=== PATIENT | female | born 1995 | race Caucasian/White ===

== ENCOUNTER 2023-05-22 05:50 | Observation (INO) ==
--- NOTE | 2023-05-17 13:43 | Anesthesiology Consultation ---
Date of Service May 17, 2023 Assessment & Plan (1) Encounter for pre-operative examination: - Check test AM DOS - Infectious disease screening: Per assessment on 05/17/23: No known infectious disease contacts or current infectious disease symptoms. No noted recent Covid positive test result. - Wegovy instructions: Patient states that she was advised by surgeon to stop Wegovy until after surgery. Last dose was 05/01/23. Patient informed by PAT RN that if restarting prior to surgery, to make sure not to take 7 days prior to surgery- voiced understanding. Chart Review Chart Review: Acceptable Risk for Surgery and Patient NOT seen in Pre Admission Testing History Surgery Operation Date: 05/22/23 07:30 Proposed Procedures p Bilateral Breast Reduction - Elif Candelario MD s Panniculectomy, Suction Assisted Lipectomy of the Abdomen - Elif Candelario MD Height/Weight Height: 5 ft 9.5 in Weight: 86.183 kg Allergies Allergy/AdvReac Type Severity Reaction Status Date / Time amoxicillin [From Augmentin] AdvReac Unknown Nausea Verified 05/17/23 13:14 clavulanic acid AdvReac Unknown Nausea Verified 05/17/23 13:14 [From Augmentin] Medications Home Medications Medication Instructions Recorded Confirmed Last Taken ascorbic acid (vitamin C) 500 mg 1,000 mg PO QAM 07/23/22 05/17/23 2 Weeks Ago capsule ~11/05/22 ferrous sulfate 325 mg (65 mg 325 mg PO QAM 07/23/22 05/17/23 2 Weeks Ago iron) tablet (Feosol) ~11/05/22 magnesium chloride 64 mg 64 mg PO QAM 07/23/22 05/17/23 2 Weeks Ago (magnesium chloride) tablet ~11/05/22 multivitamin 1 tab PO QAM 07/23/22 05/17/23 2 Weeks Ago ~11/05/22 semaglutide (weight loss) 2.4 2.4 mg (0.75 mL) subcut Q7D #3 mL 04/12/23 05/17/23 Unknown mg/0.75 mL subcutaneous pen injector (Wegovy) ondansetron 4 mg disintegrating 4 mg PO Q6H PRN nausea and 04/29/23 05/17/23 Unknown tablet vomiting #15 tabs cholecalciferol (vitamin D3) 25 25 mcg PO QAM 05/17/23 05/17/23 Unknown mcg (1,000 unit) capsule clindamycin phosphate 1 % lotion 1 applic topical QPM 05/17/23 05/17/23 Unknown medical marijuana 1 cap PO HS PRN prn 05/17/23 05/17/23 Unknown Past Medical History Medical History Anemia Anxiety History of COVID-19 10/2022, mild symptoms Ovarian cyst nl us 08/26 Past Family History Family History Mother Skin cancer Father Diabetes Family/Other Myocardial infarction Other Hypercholesteremia Hypertension Denies family history of Ovarian cancer Prostate cancer Breast cancer Lung cancer Colorectal cancer Uterine cancer Stroke Past Surgical History Surgical History History of anesthesia reaction emotional, angry and crying Hx laparoscopic cholecystectomy S/P knee surgery 10+ years ago Status post wisdom tooth extraction Social History Smoking Status: Never smoker Do You Dip or Chew Tobacco: No Hx Alcohol Use: Yes Alcohol type: wine and hard liquor alcohol intake frequency: a few times a month Hx Substance Use: No substance use type: does not use Lab Results Anesthesia Preop Results Results Anesthesia Widget: WBC 7.56 K/ul (4.8-10.8) 05/07/23 Hgb 13.6 g/dl (12.0-16.0) 05/07/23 Hct 40.7 % (37.0-47.0) 05/07/23 Plt 418 K/uL (130-400) H 05/07/23 Na 136 mmol/L (136-145) 05/07/23 K 3.9 mmol/L (3.5-5.1) 05/07/23 Cl 104 mmol/L (98-107) 05/07/23 CO2 24 mmol/L (21-32) 05/07/23 BUN 12 mg/dl (6-23) 05/07/23 Creat 0.77 mg/dl (0.6-1.2) 05/07/23 Glucose Level 86 mg/dl (70-99(Fasting)) 05/07/23 PT 10.5 Seconds (9.0-12.0) 05/07/23 INR 1.0 (0.9-1.1) 05/07/23 Testing Electrocardiogram Date: 11/14/22 Findings: + NSR @ 85)
[2023-05-22] MEDS: LACTATED RINGER'S 1,000 ML IV SCH (06:12)
[2023-05-22] MEDS ORDERED: LIDOCAINE 2% 2 ML VIAL/AMP(20MG/ML) INFIL ONE (06:47)
[2023-05-22] MEDS ORDERED: ROCURONIUM BROMIDE 10 MG/ML 5 ML VIAL IV ONE (06:47)
[2023-05-22] MEDS ORDERED: PROPOFOL IV EMULSION 10 MG/ML 20 ML VIAL IV ONE (06:47)
[2023-05-22] MEDS ORDERED: ONDANSETRON INJ 2 MG/ML 2 ML VIAL ONE (06:47)
[2023-05-22] MEDS ORDERED: MIDAZOLAM HCL 1 MG/ML 2ML VIAL ONE (06:47)
[2023-05-22] MEDS ORDERED: fentaNYL citrate PF 100 MCG/2 ML VIAL ONE (06:47)
[2023-05-22] MEDS ORDERED: diphenhydrAMINE 50 MG/ML VIAL ONE (06:47)
[2023-05-22] MEDS ORDERED: ACETAMINOPHEN 1000 MG/100 ML IV IV ONE (06:50)
[2023-05-22] MEDS ORDERED: FAMOTIDINE/PF 20 MG/2 ML VIAL IV ONE (06:50)
--- NOTE | 2023-05-22 07:01 | History & Physical Bridge Note ---
Date of Service May 22, 2023 History & Physical Bridge Note I have examined the patient, reviewed the History & Physical and in the interval since the performance of the History & Physical I have noted the following changes of clinical significance: no changes noted
[2023-05-22] MEDS: APREPITANT 40 MG CAP PO ONE (07:25)
[2023-05-22] MEDS: SCOPOLAMINE 1 MG TDSY TD STA (07:25)
[2023-05-22] MEDS: ceFAZolin 2000MG 2,000 MG/15 ML SYR IV SCH ×2 (07:30→16:32)
[2023-05-22] MEDS: TRANEXAMIC ACID 1,000 MG **IV Pre-op IV SCH (07:50)
[2023-05-22] MEDS ORDERED: ATROPINE SULFATE 0.1 MG/ML 10ML SYR IV PRN (07:52)
[2023-05-22] MEDS ORDERED: fentaNYL citrate PF 100 MCG/2 ML VIAL IV PRN (07:52)
[2023-05-22] MEDS ORDERED: ePHEDrine sulfate 50 MG/ML AMP IV PRN (07:52)
[2023-05-22] MEDS ORDERED: HYDROmorphone INJ 1 MG/ML SYRINGE IV PRN (07:52)
[2023-05-22] MEDS ORDERED: PHENYLEPHRINE 100MCG/ML 10ML SYR IV ONE (08:08)
[2023-05-22] MEDS ORDERED: SUGAMMADEX SODIUM 200 MG/2 ML VIAL IV ONE (10:01)
[2023-05-22] MEDS: LIDOCAINE 1%/EPINEPHRINE 1:100,000 20 ML VIAL ONE (10:19)
[2023-05-22] MEDS: BUPIVACAINE 0.25% PF 30 ML VIAL ONE (10:19)
[2023-05-22] MEDS ORDERED: ePHEDrine sulfate 50 MG/5 ML SYR ONE (11:13)
[2023-05-22] MEDS: EPINEPHrine INJ 1 MG/ML AMP ONE (11:21)
[2023-05-22] MEDS: LIDOCAINE 1% LOCAL 20 ML VIAL ONE (11:24)
[2023-05-22] MEDS: TRANEXAMIC ACID 1,000 MG **IV Intra-op IV SCH (12:22)
[2023-05-22] MEDS ORDERED: HYDROmorphone INJ 1 MG/ML SYRINGE ONE ×2 (12:35→12:46)
--- NOTE | 2023-05-22 13:31 | Post Operative Brief Note ---
PG Immediate Post Op with CF Date of Surgery May 22, 2023 Pre & Post Diagnosis Operation Date: 05/22/23 07:30 Pre-Op Diagnosis: Encounter for Cosmetic Surgery Post-Op Diagnosis: Encounter for Cosmetic Surgery I identified the patient and participated in the time-out.: Yes Procedure Operation Date: 05/22/23 07:30 Actual Procedures p Bilateral Breast Reduction(Bilateral) - Elif Candelario MD s Panniculectomy, Suction Assisted Lipectomy of the Abdomen(Not Applicable) - Elif Candelario MD Surgeon Elif Candelario MD Heel Top Lift Splitter Ashlyn Reyes PA-C Estimated Blood Loss 20 Findings Consistent with Post-Op Diagnosis Specimens Specimen Description: A. Left Breast Tissue 273g B. Right Breast Tissue 295.8g Drains Rogelio Drain (x4) and Patel Catheter (16fr patel inserted by Noris Munguia RN without difficulty, output monitored by anesthesia throughout procedure)
[2023-05-22] MEDS: ONDANSETRON INJ 2 MG/ML 2 ML VIAL IV PRN ×2 (14:08→18:17)
--- NOTE | 2023-05-22 14:10 | Operative Report ---
PG Post Operative Report Pre & Post Diagnosis Operation Date: 05/22/23 07:30 Pre-Op Diagnosis: Encounter for Cosmetic Surgery Post-Op Diagnosis: Encounter for Cosmetic Surgery I identified the patient and participated in the time-out.: Yes Procedure Operation Date: 05/22/23 07:30 Actual Procedures p Bilateral Breast Reduction(Bilateral) - Elif Candelario MD s Panniculectomy, Suction Assisted Lipectomy of the Abdomen(Not Applicable) - Elif Candelario MD Surgeon Elif Candelario MD Tree And Shrub Worker Ashlyn Reyes PA-C Estimated Blood Loss 20 Findings Consistent with Post-Op Diagnosis Specimens left breast tissue 273 grams, right breast tissue 296 grams Drains JPx4 Anesthesia Type General Complications none Indications desiring smaller breasts and improved abdominal contour, s/p 75 lb weight loss Description of Procedure The risks, benefits, and alternatives of the procedure were explained to the patient who agreed and signed consent. She was identified and marked in the nh eoperative holding area. She was brought to the operating room where she was positioned supine and placed under general anesthesia without incident. Peñaloza catheter was placed. Surgical site was prepped and draped sterilely. A time-out procedure was performed. I began with the left side. Markings were reassessed and an 8 cm pedicle was marked. 1% lidocaine with epinephrine was used to anesthetize the planned incisions. A 42 mm cookie cutter was used to circumscribe the nipple-areolar complex. The previously marked 8 cm pedicle was incised using a 15 blade scalpel and deepithelialized. I began with the medial dissection of the pedicle using electrocautery. Cautery was used to incise through dermis and breast parenchyma down to the chest wall, taking care not to undermine the pedicle during dissection. A similar procedure was undertaken on the lateral aspect of the pedicle again taking care not to undermine. Lastly, the pedicle was dissected out superiorly using electrocautery and this was carried down to the chest wall as well. I then began with excision of the medial breast tissue followed by lateral aspect of the breast tissue and surrounding keyhole incision. A 15 b lade scalpel was used to make the inframammary fold incision and electrocautery was used to deepen the incision through dermis and breast parenchyma. Dissection was then carried superiorly to the level of the superior incision. Superior incision was then incised using a 15 blade scalpel and again dissected using electrocautery. This was undertaken laterally and then around the keyhole portion of the incision. Care was taken to leave some fat on the lateral pectoralis fascia in order to protect the T4 intercostal nerve. Hemostasis was achieved with electrocautery. The specimen was passed off in its entirety for weighing. Additional resection was undertaken from the superior flap in order to facilitate closure of the breast and to provide the best shape. The total resection weight of the left breast was 273 grams. The wound was irrigated with saline and hemostasis was achieved with electrocautery. 0.25% Marcaine plain was used to anesthetize the incisions as well as the pectoralis fascia. A 15 [place]ian Rogelio drain was brought out through a separate stab incision. The nipple-areolar complex was brought into the keyhole using 2-0 Vicryl deep dermal suture. The wound was closed first in a lateral to mid breast direction and then medial to mid breast direction using 2-0 Vicryl deep dermal sutures. Vertical limb was also approximated using 2-0 Vicryl deep dermals and the nipple-areolar complex was inset using 2-0 Vicryl deep dermal sutures. Next, the superficial dermal layer was closed using 2-0 PDO running Quill suture along the inframammary fold and 3-0 PDS interrupted dermal sutures along the vertical limb and nipple- areolar complex. Lastly 3-0 Monocryl running subcuticular suture was placed. A similar procedure was undertaken on the right side with maximal e xcision weight of 296 grams. Breasts were symmetric and nipple-areolar complexes were viable bilaterally following wound closure. Dermabond Prineo was applied along the inframammary fold and vertical limb and Dermabond was placed around the nipple-areolar complex. Attention was then turned to the abdomen. I began with the liposuction portion of the procedure. 1% lidocaine with epinephrine was used to anesthetize the planned stab incisions, and 5 small stab incisions were placed within the planned abdominal tissue resection. A total of about 900 cc of tumescent solution was used to infiltrate the area of planned liposuction (epigastric area). A 3 mm cannula was selected. Tissue was pre-tunneled until the cannula was easily passed. Suction was applied and the cannula was passed in a fanning method from all 3 access incisions until there was uniform pinch, and bloody aspirate. Total Lipo aspirate volume was approximately 600 cc. I reassessed my panniculectomy markings which included a lower horizontal abdominal incision with the midportion 7.5 cm above the vulvar commissure. Incision was marked bilaterally to the ASIS. I began by injecting 1% lidocaine with epinephrine along the planned incision. The lower abdominal incision was made using a 15-blade scalpel to incise epidermis and superficial dermis followed by electrocautery to incise deep dermis, subcutaneous fat, Walter's fascia down to the abdominal wall. Electrocautery was used to elevate the anterior abdominal skin flap ligating the perforating vessels with electrocautery. Dissection was carried up to the level of the umbilicus in the midline. At this point, a 15-blade scalpel was used to circumscribe the umbilicus. A vertical midline incision was then made from the incision to the umbilicus and divided in the midline using electrocautery. The umbilicus was then dissected out using electrocautery down to abdominal wall. The umbilical stalk appeared viable throughout the procedure. In order to facilitate inset of the umbilicus, dissection was continued for about an additional 10 cm superior to the umbilicus. At this point, the bed was flexed and the mid portion of the superior skin flap was inset above the mons pubis using 2-0 Vicryl suture. Skin flaps were marked for excision. A 15-blade scalpel was used to make these incisions and the incision was deepened through dermis, subcutaneous fat, Walter's fat using electrocautery. Subscarpal fat was resected directly. Prior to closure, a total of 10 mL of 0.25% Marcaine plain were injected into the fascia as well as along the incisions. A 15 [place]itanian Rogelio drains were placed in the wound bed and brought out through a separate stab incision in the mons pubis. The drains were sutured into place using 3-0 nylon. The umbilicus was brought out through an inverted triangular incision in the abdominal wall. This was performed using a 15-blade scalpel. Wound closure was then begun lateral to medial using 2-0 Vicryl Walter's fascia sutures, 2-0 Vicryl deep dermal sutures, 2-0 PDO running superficial Quill suture, 3-0 Monocryl running subcuticular suture. Umbilicus was brought out through the inverted triangle incision and was sutured into place using 4-0 chromic half buried horizontal mattress sutures. The umbilicus was dressed using Xeroform and the incision was dressed using Dermabond Prineo followed by dry dressings and an abdominal binder. The procedure was tolerated well. The patient was awakened and transferred to recovery in satisfactory condition. Ashlyn Reyes PA-C was present and scrubbed throughout the procedure and was instrumental in providing retraction during dissection of the pedicle and pannus and assisting in wound closure. I attest to the content of the Intraoperative Record and any orders documented therein. Any exceptions are noted below.
[2023-05-22] MEDS: PROMETHAZINE HCL 6.25 MG in SODIUM CHLORIDE 0.9% 50 ML IV PRN (14:35)
--- NOTE | 2023-05-22 14:46 | Anesthesiology Progress Note ---
Date of Service May 22, 2023 Anesthesia Post Procedure Vital Signs Vital Signs: Temp Pulse Pulse Resp BP Pulse Ox O2 Del Method 05/22/23 14:20 68 15 133/68 100 Room Air 05/22/23 14:10 78 17 133/68 96 Room Air 05/22/23 14:00 105 H 16 139/82 100 Room Air 05/22/23 13:50 87 12 130/73 100 Room Air 05/22/23 13:44 36.0 C L 108 H 16 134/77 100 Room Air 05/22/23 06:10 36.8 C 84 20 114/88 96 Room Air Transfer of Care Handoff Completed per policy Notes Mental Status: alert / awake / arousable and participated in evaluation Patient Amnestic to Procedure: Yes Nausea / Vomiting: adequately controlled Pain: adequately controlled Airway Patency, RR, SpO2: stable & adequate BP & HR: stable & adequate Hydration State: stable & adequate Anesthetic Complications: no major complications apparent and Pt Satisfied with anesthetic care
[2023-05-22] MEDS ORDERED: MoRPHine SULFATE 2 MG/ML CARP IV PRN (15:23)
[2023-05-22] MEDS ORDERED: LORazepam 0.5 MG TAB PO PRN (15:23)
[2023-05-22] MEDS ORDERED: diphenhydrAMINE 50 MG/ML VIAL IV PRN (15:23)
[2023-05-22] MEDS ORDERED: ACETAMINOPHEN 325 MG TAB PO PRN (15:23)
[2023-05-22] MEDS ORDERED: diphenhydrAMINE Capsule 25 MG CAP PO PRN (15:23)
[2023-05-22] MEDS: SODIUM CHLORIDE 0.9% 50 ML BAG ONE (15:32)
[2023-05-22] MEDS: PROMETHAZINE HCL INJ 25 MG/ML 1 ML VIAL ONE (15:33)
[2023-05-22] MEDS: oxyCODONE/ACETAMINOPHEN 5mg/325mg TAB PO PRN ×2 (15:43→22:58)
[2023-05-22] MEDS: D5W AND 1/2NSS 1,000 ML IV SCH (15:49)
[2023-05-22] MEDS: CHECK SCOPOLAMINE PATCH PLACEMENT SCH (16:01)
[2023-05-22] MEDS: MoRPHine SULFATE 4 MG/ML 1 ML CARP\\VIAL IV PRN (18:03)
[2023-05-23] MEDS: PROMETHAZINE HCL 12.5 MG in SODIUM CHLORIDE 0.9% 50 ML IV PRN (05:10)
[2023-05-23] MEDS: MULTIVITAMIN TAB PO SCH (08:01)
--- NOTE | 2023-05-23 08:31 | Surgery Progress Note ---
Date of Service May 23, 2023 Assessment & Plan (1) Encounter for cosmetic surgery: Plan: Tracie is doing well POD #1 bilateral breast reduction and panniculectomy with liposuction. Anticipate d/c home later this morning after patel removed and she is able to successfully void. All questions answered, f/u tomorrow in the office. Admission and Anticipated Discharge Date Admission Date: May 22, 2023 Subjective Tracie is resting comfortably in bed. She has good pain control. Patel is still inn place, but she is ambulating and tolerating a regular diet. Physical Exam Physical Exam: nipples pink, sensate, viable. breast drains with scant serosang output- removed abd binder in place, no drainage on gauze dressings. abd drains with appropriate serosang output Results & Data Vital Signs (Past 12 Hours) Vital Signs Temp Pulse Resp BP Pulse Ox O2 Del Method 05/23/23 07:17 36.6 C 86 16 95/61 L 96 Room Air 05/23/23 04:30 36.6 C 83 15 97/63 L 97 Room Air 05/22/23 22:48 36.8 C 95 H 18 99/65 L 97 Room Air PG Care Time/CCT Total # of Minutes Spent Total Time Spent with Patient: Total time spent is greater than 50% in coordination of care (as documented) at patient's floor/unit and/or counseling patient: Coding Level of Care Code 99752 Post Operative Follow-Up Diagnoses Encounter for cosmetic surgery Z41.1
--- NOTE | 2023-05-24 10:59 | Discharge Summary ---
Date of Service May 24, 2023 Admission HPI Per Admitting Provider Patient presents for cosmetic bilateral breast reduction and panniculectomy. Principal Diagnosis encounter for cosmetic surgery Discharge Exam nipples pink, viable, sensate. abd binder in place. abd ALBARO drains with scant drainage Discharge Data Allergies Allergy/AdvReac Type Severity Reaction Status Date / Time amoxicillin [From Augmentin] AdvReac Unknown Nausea Verified 05/22/23 06:14 clavulanic acid AdvReac Unknown Nausea Verified 05/22/23 06:14 [From Augmentin] Procedures Performed Operation Date: 05/22/23 07:30 Actual Procedures p Bilateral Breast Reduction(Bilateral) - Elif Candelario MD s Panniculectomy, Suction Assisted Lipectomy of the Abdomen(Not Applicable) - Elif Candelario MD Ordered Studies 05/22/23 05:00 US - OR guided needle placemen Routine Hospital Course (1) Encounter for cosmetic surgery: Patient presented to [facility] for cosmetic surgery. She was taken to the OR and underwent bilateral breast reduction, panniculectomy with liposuction of her upper abdomen. There were no intraoperative complications. She was taken to recovery and transferred to med/surg for observation. On POD#1, she was feeling well. She was tolerating a regular diet and ambulating. On exam, her vitals were stable. Her incisions were CDI and nipples viable. Her breast drains were removed. Abdominal binder in place, abd drains with serosang output. She was discharged home with instructions to follow-up in the office in one day. Total Time Total Time Spent Total Time Spent (In Minutes): 10 Discharge Plan Discharge Items Patient Disposition: Home - Self-Care Reason For Visit: Encounter for Cosmetic Surgery Discharge Diagnosis: s/p bilateral breast reduction and panniculectomy with liposuction upper abdomen. Activity: As commented below Non-emergency contact: Surgeon Call non-emergency contact if: you have any medication questions, your pain is not controlled, you have a fever, your wound has increased redness and your wound has increased drainage Follow-up/Referrals: Rajat Contreras CRNP [Primary Care Provider] - Ashlyn Reyes PA-C [Physician Cistern Room Working Supervisor] - Diet: Regular Addtl Attending Provider Instructions: ACTIVITY RECOMMENDATIONS: __Normal activities _x_No bending, lifting or straining. Keep arms at shoulder height or below. Do not stand or lay flat until it is easily comfortable. __No driving __Driving allowed when you are off pain medications _x_Walking permitted __You should have help at home for ___ days DRESSINGS: __No dressings required _x_Keep dressings dry/in place until first office visit. Compression bra and binder must stay on __Remove dressings ___ and leave dressings off __Apply ice ___ days __Remove dressings and reapply garment __Apply antibiotic ointment (Bacitracin, Neosporin, etc) to wounds 3-4 times/day for 10 days BATHING: __Keep dressings dry _x_Sponge bathing permitted away from surgical dressings __Showering permitted _x_No swimming, hot tubs or soaking in a tub MEDICATIONS: Resume previous medications unless instructed otherwise by your surgeon. _x_Do not use aspirin, Motrin, Advil or Ibuprofen as these may promote bleeding. Please use Tylenol. _x_Prescription(s) provided: pain medication was provided at your last office visit OTHER INSTRUCTIONS: _x_Record drain output 2-3 times per day SPECIAL CARE INSTRUCTIONS: * It is normal to have a mild fever after surgery. If your temperature is higher than 101.5 degrees F, please call the office at [phone]. * Constipation is a typical side effect of pain medication. An [id number] stool softener will help relieve this. * Leaking around surgical drains may occur and should not cause concern. Sometimes these drains become clogged. If this happens, remove the bulb and milk the clot out of the tube, then replace the bulb. * Drainage from wounds after liposuction is normal and should be expected. Garments will become soiled. You should protect furniture and bedding. This drainage should mostly subside within 2-3 days. Leave garments in place unless instructed to remove them. * If you have unusual drainage from a wound or are concerned you have an infection or have any questions or concerns, please call the office at [phone]. FOLLOW UP VISIT: If not already scheduled, please call the office, , when you return home after surgery to schedule an appointment to be seen in _1__ days. Pending Studies at Discharge: Yes Stand-Alone Forms: My [facility], Smoking Cessation Medications and DC Order Prescriptions: Continued multivitamin Tablet 1 tab PO QAM Hold Instructions: SURGERY ferrous sulfate [Feosol] 325 mg (65 mg iron) tablet 325 mg PO QAM Hold Instructions: SURGERY magnesium chloride 64 mg magnesium tablet 64 mg PO QAM Hold Instructions: SURGERY ascorbic acid (vitamin C) 500 mg capsule 1,000 mg PO QAM Hold Instructions: SURGERY Wegovy 2.4 mg/0.75 mL pen injector 2.4 mg subcut Q7D Qty: 3 5RF Hold Instructions: SURGERY Patient Comments: wednesdays ondansetron 4 mg tablet,disintegrating 4 mg PO Q6H PRN (Reason: nausea and vomiting) Qty: 15 0RF clindamycin phosphate 1 % lotion 1 applic TOP QPM Rx Instructions: Apply to affected areas on face 1-2x daily cholecalciferol (vitamin D3) 25 mcg (1,000 unit) capsule 25 mcg PO QAM Discontinued medical marijuana 1 cap PO HS PRN (Reason: prn) Rx Instructions: As directed No Action oxycodone-acetaminophen [Percocet] 5-325 mg tablet 1 tab PO Q4H PRN (Reason: pain) Qty: 20 0RF Rx Instructions: Continued therapy. Discharge Orders: Discharge Order (Routine); Ordered 05/23/23 Ordered By: Ashlyn Littlejohn/Other Patient Handouts: Breast Reduction Surgery, Stepan Carlos Drain Tube Dc, Post Op Drain Emptying Steps Admission Data Admit Date/Time: 05/22/23 13:59 Attending Provider: Elif Candelario Admit Provider: Elif Candelario Primary Care Provider: Rajat Contreras Other Interventions: Discharge Summary Assessment (RN) Last Done: 05/23/23 09:29 Coding Level of Care Code 70734 OBS Care - Discharge Diagnoses Encounter for cosmetic surgery Z41.1
== END 2023-05-23 12:41 | disposition home or self-care (01) ==
LOC: 3E 05:50 → ASU 05:50
DX: Z41.1 Encounter for cosmetic surgery